=== PATIENT | female | born 1960 ===

== ENCOUNTER 2017-04-15 10:30 | Outpatient (CLI) | payer OTHER, MEDICARE ==
--- NOTE | 2017-04-15 12:06 | Mammography Report ---
Bilateral diagnostic mammogram and bilateral targeted breast ultrasound. History: Recall for bilateral asymmetries. Findings: Spot compression image of the left breast in the CC projection confirms the presence of a 1 cm well-circumscribed asymmetry. On the ML view, this asymmetry is partially obscured by adjacent parenchyma but appears to be located at the 10:00 position. Sonographic evaluation of this area x2 demonstrated no sonographic cystic or solid mass. Spot compression images of the right side confirm the presence of a subcentimeter asymmetry in the medial right breast, probably at the 2:00 position. Sonographic evaluation this area demonstrates a 4 mm cyst which correlates with the mammographic finding. A 3 mm cyst is also seen in this area At the 1:30 position, there is a 5 mm complex cyst measuring 5 mm in diameter. The margins are slightly indistinct, but there is no acoustic shadowing or other suspicious finding. A dilated duct is also seen at the 3:00 position. No additional findings in the right breast. Impression: 1. Persistent nodular asymmetry in the left breast with no sonographic correlate. 2. Benign findings in the right breast. BI-RADS code: 3. Recommendation: A six-month followup left mammogram and left breast ultrasound are recommended.
== END 2017-04-15 11:30 | disposition home or self-care (01) ==
LOC: SPVWC 10:30
PROVIDERS: ATTEND Surgery
DX: N60.01 Solitary cyst of right breast (principal); N64.89 Other specified disorders of breast; R92.2 Inconclusive mammogram
CPT/HCPCS: 77066